=== PATIENT | female | born 1940 | race Caucasian/White ===

== ENCOUNTER 2018-03-14 12:21 | Emergency (ER) | payer MEDICARE, MEDICAID ==
[~2018-03-14] VITALS: Ht 152.4 cm; Wt 49.9 kg
[2018-03-14 12:34] VITALS: BP 182/93
[2018-03-14 14:36] VITALS: BP 175/84
== END 2018-03-14 14:36 | disposition home or self-care (01) ==
LOC: MED 12:21
DX: J30.2 Other seasonal allergic rhinitis (principal); I10 Essential (primary) hypertension; Z90.49 Acquired absence of other specified parts of digestive tract
CPT/HCPCS: 99283